=== PATIENT | female | born 1990 | race Asian ===

== ENCOUNTER 2018-02-10 12:01 | Day surgery (SDC) | payer SELFPAY ==
[~2018-02-10 12:01] MED LIST: Clindamycin Phosphate in D5W 600 MG in Premix Bag 50 BAG IV ONE; Lactated Ringers 1,000 ML IV SCH
[2018-02-10] MEDS ORDERED: Midazolam 1 MG/ML 2 ML SDV ONE (12:32)
[2018-02-10] MEDS ORDERED: Propofol 200 MG/20 ML SDV ONE (12:32)
[2018-02-10] MEDS ORDERED: fentaNYL 250 MCG/5 ML SDV ONE (12:32)
[2018-02-10] MEDS ORDERED: Lidocaine 2% 5 ML SDV ONE (12:32)
[2018-02-10] MEDS ORDERED: Bupivacaine 25%/EPINEPHrine/PF 30 ML ONE (13:04)
[2018-02-10] MEDS ORDERED: Clindamycin Phosphate in D5W 50 ML ONE (13:23)
--- NOTE | 2018-02-10 13:45 | PCM.PREANE ---
Preanesthetic Assessment - Procedure Proposed Procedure: bx of posterior neck - Anesthesia/Transfusion/Family Hx Anesthesia History: Prior Anesthesia Without Reaction Transfusion History: No Prior Transfusion(s) Intubation History: Unknown - Review of Systems General: No Symptoms Pulmonary: Other (on/off smoker) Cardiovascular: No Symptoms Gastrointestinal: No Symptoms Neurological: No Symptoms Other: Reports: None - Physical Assessment NPO Status Date: 02/09/18 NPO Status Time: 22:00 Height: 5 ft 3 in Weight: 131 lb ASA Class: 1 Mental Status: Alert & Oriented x3 Airway Class: Mallampati = 1 Dentition: Reports: Normal Dentition Thyro-Mental Finger Breadths: 3 Mouth Opening Finger Breadths: 3 ROM/Head Extension: Limited/Partial Lungs: Clear to Auscultation, Normal Respiratory Effort Cardiovascular: Regular Rate, Regular Rhythm, No Murmurs - Lab Values: Laboratory Last Values Urine HCG, Qual NEGATIVE (NEGATIVE) 02/10/18 12:10 - Allergies Allergies/Adverse Reactions: Allergies Allergy/AdvReac Type Severity Reaction Status Date / Time shellfish derived Allergy Rash Verified 02/07/18 10:28 - Blood Blood Available: No Product(s) Available: None - Anesthesia Plan Pre-Op Medication Ordered: None - Acknowledgements Anesthesia Type Planned: General Anesthesia (prone position) Pt an Appropriate Candidate for the Planned Anesthesia: Yes Alternatives and Risks of Anesthesia Discussed w Pt/Guardian: Yes Pt/Guardian Understands and Agrees with Anesthesia Plan: Yes PreAnesthesia Questionnaire Genitourinary History: Reports: None INSTRUMENT FITTER History: Reports: Other OB/BYN History: x2 Dermatologic History: Reports: Eczema - Past Surgical History Head Surgeries/Procedures: Reports: None Female Surgical History: Reports: Section, Other (See Below) Other Female Surgeries/Procedures: excision of bartholin's cyst - SUBSTANCE USE Smoking Status *Q: Light Tobacco Smoker Tobacco Use Within Last Twelve Months: Other (See Below) Other Tobacco Use Within Last Twelve Months: vapor cigarettes Recreational Drug Use History: No - HOME MEDS Home Medications: Home Meds . [No Known Home Meds] 02/07/18 [History] - CURRENT (IN HOUSE) MEDS Current Meds: Current Medications Lactated Ringer's (Ringers, Lactated) 1,000 mls @ 125 mls/hr IV ASDIRECTED ELISA Discontinued Medications Fentanyl (Sublimaze) Confirm Administered Dose 250 mcg .ROUTE .STK-MED ONE Stop: 02/10/18 12:33 Clindamycin Phosphate 600 mg/ (Premix) 50 mls @ 100 mls/hr IV ONETIME ONE Stop: 02/10/18 05:29 Last Admin: 02/10/18 13:24 Dose: 100 mls/hr Bupivacaine HCl/Epinephrine Bitart (Sensorc Mpf 0.25%-Epi 1:[id number]) Confirm Administered Dose 30 mls @ as directed .ROUTE .STK-MED ONE Stop: 02/10/18 13:05 Clindamycin Phosphate (Cleocin In D5w) Confirm Administered Dose 50 mls @ as directed .ROUTE .STK-MED ONE Stop: 02/10/18 13:24 Lidocaine (Xylocaine-Mpf 2%) Confirm Administered Dose 10 ml .ROUTE .STK-MED ONE Stop: 02/10/18 12:33 Midazolam HCl (Versed 1 Mg/Ml) Confirm Administered Dose 2 mg .ROUTE .STK-MED ONE Stop: 02/10/18 12:33 Propofol (Diprivan 20 Ml) Confirm Administered Dose 400 mg .ROUTE .STK-MED ONE Stop: 02/10/18 12:33
[2018-02-10] MEDS ORDERED: Sugammadex Sodium 200 MG/2 ML VIAL ONE (14:30)
[2018-02-10] MEDS ORDERED: fentaNYL 100 MCG/2 ML SDV IVPUSH PRN (14:33)
--- NOTE | 2018-02-10 14:52 | PCM.OPNOTE ---
- General Post-Op/Procedure Note Date of Surgery/Procedure: 02/10/18 Operative Procedure(s): excisional biopsy neck mass posterrior Findings: 1cm superficial epidermal cyst excised en bloc, just above hair line, posterior neck; [id number] Pre Op Diagnosis: neck mass Post-Op Diagnosis: Same Anesthesia Technique: General ET Tube Primary Surgeon: Garrick Covarrubias Pathology: post neck mass Complications: None Condition: Good
[2018-02-10] MEDS ORDERED: Acetaminophen/oxyCODONE 325-5 MG Tab PO PRN (14:53)
--- NOTE | 2018-02-10 15:33 | PCM48HPAN ---
Post Anesthesia Note - EVALUATION WITHIN 48HRS OF ANESTHETIC Vital Signs in Normal Range: Yes Patient Participated in Evaluation: Yes Respiratory Function Stable: Yes Airway Patent: Yes Cardiovascular Function Stable: Yes Hydration Status Stable: Yes Pain Control Satisfactory: Yes Nausea and Vomiting Control Satisfactory: Yes Mental Status Recovered: Yes Resp Rate: 17
--- NOTE | 2018-02-10 15:33 | PCM.POSTAN ---
POST ANESTHESIA ASSESSMENT - MENTAL STATUS Mental Status: Alert, Oriented - RESPIRATORY Respiratory Status: Respiratory Rate WNL, Airway Patent, O2 Saturation Stable - CARDIOVASCULAR CV Status: Pulse Rate WNL, Blood Pressure Stable - GASTROINTESTINAL GI Status: No Symptoms - POST OP HYDRATION Hydration Status: Adequate & Stable
--- NOTE | 2018-02-11 06:43 | OR ---
SURGEON: Garrick Covarrubias MD DATE OF PROCEDURE: 02/10/2018 PREOPERATIVE DIAGNOSIS: Neck mass. POSTOPERATIVE DIAGNOSIS: Neck mass. PROCEDURE PERFORMED: Excisional biopsy. COMPLICATIONS: None. FINDING: Mass has already collapsed, noted to be about 1 cm x 1 cm. There is an epidermal cyst mass excised en bloc, sent for pathology, located in the back of the neck above the hairline. PROCEDURE IN DETAIL: The patient was taken to operating room and placed in supine position. Upon induction of general endotracheal anesthesia, the patient was re-positioned in the prone position. The location of mass already located and was above the hairline on the back of the neck and right in the middle of the neck, so the head has been shaved. The patient was then prepped and draped in a sterile fashion. Time-out was being called, patient identified, procedure identified, and antibiotic given. Procedure was then started. The patient has a previous incision by the emergency room horizontal much just distal to the mass, was at least 1 cm. Considered that, a vertical incision would not be good, it will make cross, so we reluctantly made a transverse incision and was on top of the mass including the skin. The mass and skin were excised. The mass already collapsed and no signs or symptoms of infection, it is smelly, those are white tissues. Material consistent with epidermal cyst. Estimated the cyst to probably about 1 x 1 cm and was excised including the superficial skin and underlying yellow fat, sent together for pathology. Incision is 3 x 1 cm transverse. Hemostasis achieved by using electrocautery. The wound was then irrigated profusely and closed with 3-0 Ethilon. The underlying fascia was not violated. Following appropriate dressing, patient was awaken, repositioned to the supine position, transferred to recovery in hemodynamically stable condition. The patient tolerated the procedure well. There were no intraoperative complications. As always, thank you for the kind referral. ANISH / MAX /[id number]
== END 2018-02-10 16:57 | disposition home or self-care (01) ==
LOC: MW.SDS 12:01
PROVIDERS: ATTEND Surgery
DX: L72.0 Epidermal cyst (principal); F17.210 Nicotine dependence, cigarettes, uncomplicated; Z91.013 Allergy to seafood
CPT/HCPCS: 11421; 81025; 88304; J2250; J2704; J3010; J3490; J7120; 00300